=== PATIENT | female | born 1985 | race Caucasian/White ===

== ENCOUNTER 2017-06-04 20:06 | Emergency (ER) | payer SELFPAY ==
[~2017-06-04] VITALS: Ht 167.6 cm; Wt 157.0 kg
[2017-06-04 20:08] VITALS: BP 172/111
[2017-06-04] MEDS ORDERED: PHEN37.53 PO (20:21)
[2017-06-04] MEDS ORDERED: TRAZ100T15 PO (20:22)
[2017-06-04] MEDS ORDERED: SODIUM CHLORIDE FLUSH 10ML SYR IVF ONE (20:30)
[2017-06-04] MEDS ORDERED: ONDANSETRON 2MG/ML, 2ML IVPush ONE (20:30)
[2017-06-04] MEDS ORDERED: morphine SULFATE 10 MG/ML, 1ML IVPush ONE (20:30)
[2017-06-04] MEDS ORDERED: SODIUM CHLORIDE 0.9% 1,000ML IVBOLUS ONE (20:30)
[2017-06-04] MEDS ORDERED: MORPHINE SULFATE 4 MG/ML, 1ML ONE (20:39)
[2017-06-04] MEDS ORDERED: ONDANSETRON 2MG/ML, 2ML ONE (20:39)
[2017-06-04 20:43] LABS: BLOOD UREA NITROGEN 9 mg/dL (7-18)
[2017-06-04 20:57] LABS: ANISOCYTOSIS 2+
[2017-06-04 20:58] LABS: HYPOCHROMIA 2+; MICROCYTOSIS 2+; OVALOCYTES 1+; POIKILOCYTOSIS 2+; POLYCHROMASIA 1+
== END 2017-06-04 23:11 | disposition home or self-care (01) ==
LOC: ED 23:06
DX: N93.8 Other specified abnormal uterine and vaginal bleeding (principal); J45.909 Unspecified asthma, uncomplicated; Z87.891 Personal history of nicotine dependence; E28.2 Polycystic ovarian syndrome
CPT/HCPCS: 36415; 76830; 80048; 81001; 82040; 84703; 85025; 96361; 96374; 96375; 99285; J2270; J2405; J7030